=== PATIENT | female | born 1955 | race African-American/Black ===

== ENCOUNTER 2016-06-25 20:25 | Emergency (ER) | payer OTHER ==
[2016-06-25 20:56] VITALS: BP 137/68
[2016-06-25] MEDS ORDERED: DIPH,PERTUSS(ACELL),TET VAC/PF 0.5 ML DISP.SYRIN IM ONE (20:56)
[2016-06-25] MEDS ORDERED: AMOXICILLIN/POT 875/125 1 EACH PO ONE ×2 (21:36→21:39)
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
== END 2016-06-25 21:45 | disposition home or self-care (01) ==
LOC: ED 20:25
DX: S61.259A Open bite of unspecified finger without damage to nail, initial encounter (principal); W50.3XXA Accidental bite by another person, initial encounter; Y93.9 Activity, unspecified; Y99.9 Unspecified external cause status
CPT/HCPCS: 86703; 86706; 86803; 90471; 90715; 99283

== ENCOUNTER 2016-08-13 08:46 | Outpatient (CLI) | payer OTHER ==
--- NOTE | 2016-08-14 04:34 | Diagnostic Imaging Report ---
Report Submission Date: Aug 13, 2016 10:24:42 PM CDT Patient ~ Study Name: PREET PRITCHARD ~ Date: Aug 13, 2016 9:58:59 AM CDT ~ Modality Type: US Gender: F ~ Description: US ABD LIMITED : 59 ~ Institution: [facility] Physician: DANIELA WALSH ~ ~ ~ ~ Ultrasound abdomen limited History: Chronic hepatitis ~C Findings: Visualized portions of the pancreas are normal. Increased hepatic parenchymal echogenicity is observed without contour deformity or focal liver lesion. Antegrade main portal venous flow is present. The right kidney is remarkable for a 7 mm hyperechoic interpolar cortical lesion. The gallbladder is normal without stones, wall thickening, or distention. The common bile duct measures 4 mm in diameter. Impression: 1. Mild hepatic steatosis. 2. 7 mm hyperechoic right renal lesion, likely an angiomyolipoma. Recommend noncontrast CT for further evaluation. ~ Electronically signed on Aug 13, 2016 10:24:42 PM CDT by: Reggie NIELSEN
== END 2016-08-13 08:47 ==
LOC: RAD 08:46
PROVIDERS: ATTEND Psychiatry & Neurology Psychiatry
DX: B18.2 Chronic viral hepatitis C (principal)
CPT/HCPCS: 76705

== ENCOUNTER 2016-09-04 09:15 | Outpatient (CLI) | payer OTHER ==
--- NOTE | 2016-09-04 23:32 | Diagnostic Imaging Report ---
MELANI DELVALLE - MIRA [facility] [address] [facility] [address] [place], [place]. [address] Report Submission Date: Sep 04, 2016 10:58:19 AM CDT Patient Study Name: PREET PRITCHARD Date: Sep 04, 2016 9:28:29 AM CDT Modality Type: CT\SR Gender: F Description: CT ABD W/O CONTRAST : 59 Institution: [facility] Physician: MELANI DELVALLE Computed tomography of the abdomen without contrast History: 8 mm hyperechoic right renal lesion observed on August 13, 2016 sonogram. Findings: Transverse abdomen sections are obtained without contrast revealing morbid obesity, moderate hepatic steatosis, atherosclerosis, and multilevel lumbar spondylosis. The gallbladder is partially contracted. The spleen, adrenals, pancreas, and kidneys are normal. There is no correlate for the sonographic abnormality in the right kidney. Visualized bowel loops exhibit normal caliber and wall thickness. Impression: 1. No CT correlate for the right renal lesion seen sonographically. This does not exclude a small isodense neoplasm. Recommend ultrasound followup in 1 year. 2. Morbid obesity, hepatic steatosis, atherosclerosis, and lumbar spondylosis noted. Electronically signed on Sep 04, 2016 10:58:19 AM CDT by: Reggie NIELSEN
== END 2016-09-04 09:16 ==
LOC: RAD 09:15
PROVIDERS: ATTEND Family Medicine
DX: N28.9 Disorder of kidney and ureter, unspecified (principal)
CPT/HCPCS: 74150

== ENCOUNTER 2016-12-17 13:35 | Emergency (ER) | payer OTHER ==
[2016-12-17] MEDS: ASPIRIN 81 MG CHEW TAB PO ONE (13:56)
[2016-12-17] MEDS: ONDANSETRON HCL/PF 4 MG/ 2ML VIAL IVP ONE (13:56)
--- NOTE | 2016-12-17 13:59 | ED Physician Documentation ---
Dizziness - HISTORIAN Historian: patient - [facility] Chief Complaint: Dizziness (Chest Pressure) Additional Information: Patient states that she woke up this morning around 8 a.m. she did not get dizzy until she sat up- she became very dizzy and nauseated- when she tried to stand she had a near syncopal episode- she denies any loss of consciousness. Says she has some chest pressure that started around the same time. Timing: sudden onset, still present (dizziness subsides when lying still) Duration: other (chest pressure is constant) Last known Well Date: 12/17/16 Last Known Well Time: 08:00 Severity: moderate (when patient sits up or moves head abruptly) Associated Symptoms: nausea, light headedness, nearly fainted Decreased Ability to Stand/ Walk: off balance (due to dizziness) Usually: walks w/o assistance Worsened By: changing position, movement of head - ROS CONST: other ("aches all over"). denies: recent illness, fever, chills EYES/ENT: other (dizziness with position change) GI/: other (c/o nausea). denies: abdominal pain, problems urinating LNMP: denies: MS/SKIN/LYMPH: other (left ankle pain x 1 month). denies: calf pain, ankle swelling NEURO/PSYCH: denies: none CVS/RESP: other (describes chest discomfort as "pressure" not pain) - PAST HX Past History: hepatitis, hypertension Cardiac Disease: other (murmur). denies: CHF, CAD Surgeries/Procedures: none Immunizations: UTD Allergies/Adverse Reactions: Allergies Allergy/AdvReac Type Severity Reaction Status Date / Time No Known Allergies Allergy Verified 06/25/16 21:52 Home Medications: Ambulatory Orders Medication Instructions Recorded Diazepam [Valium] 2 mg PO Q4 PRN #20 tablet 12/17/16 - SOCIAL HX Smoking History: greater than 1 pack/day Alcohol Use: none Drug Use: none - FAMILY HX Family History: stroke, CAD - VITAL SIGNS Vital Signs: Vital Signs Temp Pulse Resp BP Pulse Ox 137/68 06/25/16 21:59 - REVIEWED ASSESSMENTS Nursing Assessment Reviewed: Yes Vitals Reviewed: Yes Progress - Results/Orders Results/Orders: Orthostatics completed by RN- patient was only able to sit- when she stood she became very dizzy and started to lean backwards. Lying and sitting completed. - Progress Progress: 14:36 patient is resting comfortably at this time- still feeling dizzy but improves if she does not change position. Will give some Valium IV since meclezine has not helped much. 15:54 Patient is feeling better at this time, is able to move with just a little dizziness. - EKG/XRAY/CT EKG: rhythm (sinus gucci with rate fo 48) XRAY: chest - Consult/PCP Consult/PCP: Consulted with cream dumper-reviewed EKG- will continue with [facility] ED Results Lab/Radiology - Lab Results Lab Results: Discussed lab results with patient - Radiology Radiology Impressions: Chest 1 view Date of Exam: December 17, 2016. History: CHEST PRESSURE. SMOKER. (Hx) / CHEST PRESSURE (DICOM Hx) / CHEST PRESSURE (Pt comments) Findings: No comparison studies are provided. The film quality is suboptimal. The cardiac and mediastinal silhouettes are normal. Questionable hazy right lower lobe infiltrate is poorly defined. The trachea is midline. The pulmonary vascularity appears within normal limits. Impression: Suboptimal film quality. Partial hazy right lower lobe infiltrate. - Orders Orders: ED Orders Category Date Time Status Continuous EKG monitoring Q30M Care 12/17/16 13:48 Ordered Continuous Pulse Oximetry Q30M Care 12/17/16 13:48 Ordered Orthostatics 1T Care 12/17/16 13:53 Ordered CHEST 1 VIEW [RAD] Stat Exams 12/17/16 13:48 Ordered CBC/PLATELET/DIFF Routine Lab 12/17/16 13:48 Ordered CMP Routine Lab 12/17/16 13:48 Ordered CREATINE KINASE Routine Lab 12/17/16 13:48 Ordered TROPONIN I (cTnI) Stat Lab 12/17/16 13:48 Ordered Aspirin Med 12/17/16 13:47 Once 324 mg PO NOW ONE Ondansetron HCl/Pf [Zofran 4 mg/2 ml] Med 12/17/16 13:49 Once 4 mg IVP NOW ONE Oxygen Daily Oxygen 12/17/16 14:00 Ordered EKG WITH COMPARISON Stat Ther 12/17/16 13:48 Ordered Dizziness Physical Exam - Physical Exam General Appearance: moderate distress EENT: ENT inspection normal, no nystagmus, TM's nml Neck: normal inspection Respiratory: no respiratory distress, breath sounds nml, wheezes CVS: heart sounds normal, murmur, bradycardia (sinus bradycardia). No: no gallop Abdomen: soft, normal bowel sounds, non-tender. No: tenderness Skin: warm/dry, pallor Neuro: nml orientation, nml speech, nml cognition Extremities: no edema, tenderness (to the left ankle x 1 month) Cranial: no evidence of acute CVA. No: facial droop Cerebellar: nml gait (just feeling dizzy) Sensorimotor: motor nml, sensation nml, weakness Discharge Clincal Impression: Benign positional vertigo Prescriptions: Diazepam [Valium] 2 mg PO Q4 PRN #20 tablet PRN Reason: Dizziness Referrals: Niyah Kincaid MD [Primary Care Provider] - 2 Days Home Medications: Ambulatory Orders Diazepam [Valium] 2 mg PO Q4 PRN #20 tablet 12/17/16 Condition: Stable Disposition: 01 HOME, SELF-CARE Decision to Admit: NO Date of Decison to Admit: 12/17/16 Decision Time: 15:03
[2016-12-17 14:03] LABS: BASOPHILS % 0.6 (0.0-1.5); EOSINOPHILS % 1.8 % (0.0-6.8); MEAN CORPUSCULAR HEMOGLOBIN 28.1 pg (28.0-34.0); MEAN CORPUSCULAR VOLUME 88.7 fl (80.0-100.0); MONOCYTES % 3.4 % (0.0-11.0); NEUTROPHILS # 6.3 # k/uL (1.4-7.7)
[2016-12-17 14:19] LABS: eGFR (African) > 60; eGFR (Non-African) > 60
[2016-12-17] MEDS: MECLIZINE HCL 25 MG TABLET PO ONE (14:27)
[2016-12-17] MEDS ORDERED: DIAZEPAM 5 MG/ML DISP.SYRIN ONE (14:54)
[2016-12-17] MEDS: DIAZEPAM 5 MG/ML DISP.SYRIN IVP ONE (15:00)
[2016-12-17] MEDS: 0.9 % SODIUM CHLORIDE 500 ML IV SCH (15:05)
[2016-12-17] MEDS ORDERED: 0.9 % SODIUM CHLORIDE 500 ML IV ONE (15:12)
--- NOTE | 2016-12-17 15:17 | Diagnostic Imaging Report ---
[facility] [address] [facility] [address] Report Submission Date: Dec 17, 2016 3:03:05 PM CDT Patient Study Name: PREET PRITCHARD Date: Dec 17, 2016 1:55:02 PM CDT Modality Type: CR Gender: F Description: CHEST : 59 Institution: [facility] Physician SHO GUTIERREZ - ER Chest 1 view Date of Exam: December 17, 2016. History: CHEST PRESSURE. SMOKER. (Hx) / CHEST PRESSURE (DICOM Hx) / CHEST PRESSURE (Pt comments) Findings: No comparison studies are provided. The film quality is suboptimal. The cardiac and mediastinal silhouettes are normal. Questionable hazy right lower lobe infiltrate is poorly defined. The trachea is midline. The pulmonary vascularity appears within normal limits. Impression: Suboptimal film quality. Partial hazy right lower lobe infiltrate. Electronically signed on Dec 17, 2016 3:03:05 PM CDT by: Harpal NIELSEN
[2016-12-17 16:36] VITALS: BP 146/58
== END 2016-12-17 16:00 | disposition home or self-care (01) ==
LOC: ED 13:35
DX: H81.10 Benign paroxysmal vertigo, unspecified ear (principal)
CPT/HCPCS: 71010; 80053; 82550; 84484; 85025; 96361; 96374; 99283; J2405; J3360; J7060; J7030; S1016

== ENCOUNTER 2018-06-03 11:34 | Outpatient (CLI) | payer OTHER | END 2018-06-03 12:00 | LOC: LABRHC 11:34 | PROVIDERS: ATTEND Family Medicine | DX: M54.5 Low back pain (principal) | CPT/HCPCS: 87086 ==

== ENCOUNTER 2018-10-19 08:45 | Outpatient (CLI) | payer OTHER ==
--- NOTE | 2018-11-06 11:03 | Diagnostic Imaging Report ---
MELANI DELVLALE [facility] [address] [facility].[address] [address] Report Submission Date: Oct 19, 2018 9:48:10 AM CDT Patient Study Name: PREET PRITCHARD Date: Oct 19, 2018 8:52:31 AM CDT Modality Type: US\SR Gender: F Description: US PELVIC : 59 Institution: [facility] Physician: MELANI DELVALLE Exam: Endovaginal ultrasound. History: Postmenopausal bleeding. Real-time grayscale imaging of the pelvis and vaginally is performed. The uterus appears anteverted but otherwise normal in configuration . Numerous areas of diminished echogenicity are associated with the myometrium suggestive of multiple fibroids. No thickening to the endometrial canal is identified. The ovaries are not well visualized. No free cul-de-sac fluid is identified. Impression: Anteverted myomatous uterus. Electronically signed on Oct 19, 2018 9:48:10 AM CDT by: Praveen NIELSEN
--- NOTE | 2018-11-06 11:08 | Diagnostic Imaging Report ---
MELANI DELVALLE [facility] [address] [facility] [address] [address] Report Submission Date: Oct 19, 2018 9:53:38 AM CDT Patient Study Name: PREET PRITCHARD Date: Oct 19, 2018 8:58:51 AM CDT Modality Type: US\SR Gender: F Description: US TRANSVAGINAL : 59 Institution: [facility] Physician: MELANI DELVALLE Exam: Endovaginal ultrasound. History: Postmenopausal bleeding. Real-time grayscale imaging of the pelvis and vaginally is performed. No previous studies are available for comparison. The uterus appears to be anteverted. Heterogeneous appearing myometrium is suggestive of multiple fibroids. The endometrial canal is not thickened. The ovaries are not well visualized. No free cul-de-sac fluid is identified. Impression: Anteverted myomatous uterus. Electronically signed on Oct 19, 2018 9:53:38 AM CDT by: Praveen NIELSEN
== END 2018-10-19 08:50 | disposition home or self-care (01) ==
LOC: RAD 08:45
PROVIDERS: ATTEND Family Medicine
DX: N95.0 Postmenopausal bleeding (principal)
CPT/HCPCS: 76830; 76856